=== PATIENT | male | born 1995 | race Caucasian/White ===

== ENCOUNTER 2016-10-20 10:32 | Emergency (ER) | payer OTHER ==
[~2016-10-20] VITALS: Ht 180.3 cm; Wt 76.2 kg
--- NOTE | 2016-10-20 10:35 | NUR ---
pt walked into er co right knee possible dislocation. pt says has had knee dislocations before and has beemn able to reduce it himself. today he did it but the pain level is more than before nd the pt is not sure if its reduced completely or not. pt able to straughten the right knee, although very tender.
[2016-10-20] MEDS ORDERED: HYDROCODONE/APAP 10-325 MG TABLET PO ONE (10:45)
[2016-10-20] MEDS ORDERED: HYDROCODONE/APAP 10-325 MG TABLET ONE (11:02)
--- NOTE | 2016-10-20 11:32 | NUR ---
Patient discharged to home in stable conditon. Written and verbal after care instructions given. Patient verbalizes understanding of instructions.PT HAS HAD USED CRUTCHES BEFORE.
== END 2016-10-20 11:34 | disposition home or self-care (01) ==
LOC: ER 10:32
DX: M25.561 Pain in right knee (principal); Z88.1 Allergy status to other antibiotic agents; Z88.8 Allergy status to other drugs, medicaments and biological substances; Z91.040 Latex allergy status
CPT/HCPCS: 73560; A4663